=== PATIENT | male | born 1995 | race Caucasian/White ===

== ENCOUNTER 2022-11-27 15:52 | Emergency (ER) | payer OTHER, SELFPAY ==
[2022-11-27 16:06] VITALS: BP 147/76; PULSE 64; RESP 16; TEMP 37.1; O2SAT 100
--- NOTE | 2022-11-27 16:27 | PC.NURSE ---
NO CULTURE PER PROVIDER.
--- NOTE | 2022-11-27 16:32 | ED.MALEGU ---
HPI - Male Genitourinary General Chief complaint: Urogenital-Male Stated complaint: urinary pain Time Seen by Provider: 11/27/22 16:32 Source: patient, RN notes reviewed and old records reviewed Mode of arrival: ambulatory Limitations: no limitations History of Present Illness HPI Narrative: 27 year old male who presents to [facility] with complaints of some burning with urination for the past 4 weeks Patient reports no pain at rest no urgency with urination, burning and some pain with urination. Patient reports no fevers or any back pain or any testicular pain. Patient reports that he has had only one sex partner in last 2 months denies any lesions or drainage from penis or any itching. 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 MD Complaint: dysuria Onset (ago): week(s) Related Data Allergies Allergy/AdvReac Type Severity Reaction Status Date / Time No Known Allergies Allergy Verified 11/27/22 16:10 Review of Systems Review of Systems: CONSTITUTIONAL: Denies fever, chills, or sweats. CARDIOVASCULAR: Denies chest pain, palpitations, or edema. RESPIRATORY: Denies cough or dyspnea. GASTROINTESTINAL: Denies abdominal pain, nausea, vomiting, or diarrhea. GENITOURINARY: Reports dysuria,no frequency, urgency. Denies flank pain or hematuria. SKIN: Denies rash or itching. MUSCULOSKELETAL: Denies back pain or myalgia. Denies CVA tenderness NEUROLOGIC: Denies headache All systems reviewed & are unremarkable except as noted in HPI and below PMFSH Past Medical History Medical History (Updated 11/29/22 @ 19:18 by Muriel Carvalho NP) Femur fracture, left ORIF michelle and screws Surgical History Surgical History (Updated 11/29/22 @ 19:19 by Muriel Carvalho NP) History of hernia repair Social History Social History (Updated 11/29/22 @ 19:17 by Muriel Carvalho NP) Smoking status: Never smoker Alcohol intake: current Alcohol use details: social Substance use type: does not use Gender identity (if verbalized by the patient): Male Comments At time of signature, agree with nursing past medical, surgical, social and family history. There is no relevant family history pertinent to the presenting complaint Exam Narrative: GENERAL: Well-appearing, well-nourished, and in no acute distress. HEAD: Normocephalic, atraumatic. NECK: Supple. no lymphadenopathy CHEST: Clear to auscultation. No respiratory distress. SAO2 100% on room air HEART: Regular rate and rhythm. No murmur heard. Normal peripheral pulses. ABDOMEN: Soft, nontender, nondistended, normal active bowel sounds. No CVA tenderness, no hematuria noted, some burning with urination verbalized, no lesions on penis or penis drainage, no testicular pain EXTREMITIES: Normal range of motion. No edema. SKIN: Warm, dry, no rash. NEURO: No focal deficits. Alert and oriented x3. Course Course Emergency Course: Patient is aware of diagnosis, understands and agrees to treatment plan.? Anticipatory guidance given.? Patient agrees to follow-up as directed and is aware of reasons to seek care at the emergency department. Portions of this record may have been created with voice recognition software Level of Care: Express Care Visit Vital Signs Vital signs: Vital Signs Temperature 37.1 C 11/27/22 16:06 Pulse Rate 64 11/27/22 16:06 Respiratory Rate 16 11/27/22 16:06 Blood Pressure 147/76 H 11/27/22 16:06 Pulse Oximetry 100 11/27/22 16:06 Oxygen Delivery Room Air 11/27/22 16:06 Temperature 37.1 C 11/27/22 16:06 Pulse Rate 64 11/27/22 16:06 Respiratory Rate 16 11/27/22 16:06 Blood Pressure 147/76 H 11/27/22 16:06 Pulse Oximetry 100 11/27/22 16:06 Oxygen Delivery Room Air 11/27/22 16:06 MDM - Male Genitourinary MDM Narrative Medical decision making narrative: Patient wishes to have urine and urine for STDs sent does not wnt treatment unless findings are positi
== END 2022-11-27 16:50 | disposition home or self-care (01) ==
PROVIDERS: Emergency Provider Registered Nurse; PCP Internal Medicine
DX: N34.2 Other urethritis (principal)
CPT/HCPCS: 81003; 87491; 87591; 87661; 99203; G0463